=== PATIENT | female | born 1990 | race African-American/Black ===

== ENCOUNTER 2018-08-31 05:26 | Emergency (ER) | payer MEDICAID, OTHER ==
[~2018-08-31] VITALS: Ht 170.2 cm; Wt 77.1 kg
[2018-08-31 06:00] VITALS: BP 125/84
[2018-08-31 06:27] LABS: Urine WBC None Seen /hpf (0 - 5)
[2018-08-31 06:34] LABS: Urine Bacteria NONE SEEN /hpf (None Seen); Urine Blood Negative /uL (Negative); Urine Mucus FEW (None Seen); Urine Specific Gravity 1.002 (1.001-1.035)
[2018-08-31 06:46] LABS: Amphetamine Screen, Urine NEGATIVE (NEGATIVE); Barbiturate Scree,Urine NEGATIVE (NEGATIVE); Benzodiazephine Screen, Urine NEGATIVE (NEGATIVE); Cannabinoid Screen, Urine NEGATIVE (NEGATIVE); Cocaine Screen, Urine NEGATIVE (NEGATIVE); Opiate Scree,Urine NEGATIVE (NEGATIVE); Phencyclidine Screen, Urine NEGATIVE (NEGATIVE)
== END 2018-08-31 07:01 | disposition left against medical advice (07) ==
LOC: ER 05:29
DX: R10.9 Unspecified abdominal pain (principal)
CPT/HCPCS: 80307; 81001; 81025